=== PATIENT | female | born 1950 | race Two or more races ===

== ENCOUNTER 2018-03-25 15:05 | Emergency (ER) | payer OTHER ==
[~2018-03-25] VITALS: Ht 160 cm; Wt 57.6 kg
[~2018-03-25 15:05] MED LIST: MILLIPRED DP5 M1 PO; SYNTHROID88 MCG
== END 2018-03-25 17:03 | disposition home or self-care (01) ==
LOC: ER 15:05
DX: S90.31XA Contusion of right foot, initial encounter (principal); M12.571 Traumatic arthropathy, right ankle and foot; W22.8XXA Striking against or struck by other objects, initial encounter; Y93.89 Activity, other specified; Y92.89 Other specified places as the place of occurrence of the external cause; Y99.8 Other external cause status

== ENCOUNTER 2018-09-18 14:18 | Outpatient (CLI) | payer OTHER | END 2018-09-18 14:21 | disposition home or self-care (01) | LOC: MRI 14:18 | DX: M25.561 Pain in right knee (principal) | CPT/HCPCS: 73721 ==

== ENCOUNTER → 2019-12-27 | Outpatient (CLI) | payer OTHER | END | disposition home or self-care (01) | LOC: RAD 09:23 | PROVIDERS: ATTEND Chiropractor | DX: M99.01 Segmental and somatic dysfunction of cervical region (principal); M99.02 Segmental and somatic dysfunction of thoracic region; M99.03 Segmental and somatic dysfunction of lumbar region ==

== ENCOUNTER 2020-09-12 11:31 | Outpatient (CLI) | payer OTHER | END 2020-09-12 11:41 | disposition home or self-care (01) | LOC: RAD 11:31 | PROVIDERS: ATTEND Chiropractor | DX: M99.01 Segmental and somatic dysfunction of cervical region (principal); M99.02 Segmental and somatic dysfunction of thoracic region; M99.03 Segmental and somatic dysfunction of lumbar region ==

== ENCOUNTER → 2023-02-22 | Outpatient (CLI) | payer OTHER | END | disposition home or self-care (01) | LOC: RAD 10:45 | DX: S93.505A Unspecified sprain of left lesser toe(s), initial encounter (principal); S93.602A Unspecified sprain of left foot, initial encounter ==

== ENCOUNTER 2023-12-01 10:10 | Emergency (ER) | payer OTHER ==
[~2023-12-01] VITALS: Ht 160 cm; Wt 52.2 kg
[2023-12-01] MEDS ORDERED: CEFTRIAXONE SODIUM 1,000 MG VIAL IM STA (11:32)
[2023-12-01] MEDS ORDERED: CEFTRIAXONE SODIUM 1,000 MG VIAL ONE (11:36)
== END 2023-12-01 11:43 | disposition home or self-care (01) ==
LOC: ER 10:11
DX: T14.8XXA Other injury of unspecified body region, initial encounter (principal); W57.XXXA Bitten or stung by nonvenomous insect and other nonvenomous arthropods, initial encounter; Y93.89 Activity, other specified; Y92.89 Other specified places as the place of occurrence of the external cause; Y99.8 Other external cause status
CPT/HCPCS: 96372; 99282; J0696

== ENCOUNTER 2024-08-27 11:06 | Emergency (ER) | payer OTHER ==
[~2024-08-27] VITALS: Ht 160 cm; Wt 54.4 kg
== END 2024-08-27 14:37 | disposition home or self-care (01) ==
LOC: ER 11:06
DX: S89.81XA Other specified injuries of right lower leg, initial encounter (principal); W19.XXXA Unspecified fall, initial encounter; Y93.79 Activity, other specified sports and athletics; Y92.89 Other specified places as the place of occurrence of the external cause; Y99.8 Other external cause status; E03.8 Other specified hypothyroidism